=== PATIENT | female | born 1965 | race Caucasian/White ===

== ENCOUNTER 2017-09-20 13:22 | Emergency (ER) | payer MEDICAID ==
[~2017-09-20] VITALS: Ht 162.6 cm; Wt 108.9 kg
[2017-09-20 13:28] VITALS: BP 145/71
[2017-09-20] MEDS ORDERED: HYDROCODONE/APAP 5/325MG 1 EACH TABLET ONE (13:54)
[2017-09-20] MEDS ORDERED: HYDROCODONE/APAP 5/325MG 1 EACH TABLET PO ONE (14:00)
== END 2017-09-20 14:42 | disposition home or self-care (01) ==
LOC: ER 13:25
DX: S83.91XA Sprain of unspecified site of right knee, initial encounter (principal); X50.1XXA Overexertion from prolonged static or awkward postures, initial encounter; Y93.01 Activity, walking, marching and hiking; Y92.89 Other specified places as the place of occurrence of the external cause; Y99.8 Other external cause status
CPT/HCPCS: 73564; 99284; A4606; Z7610

== ENCOUNTER 2024-08-18 15:29 | Emergency (ER) | payer MEDICAID, OTHER ==
[~2024-08-18] VITALS: Ht 152.4 cm; Wt 111.1 kg
[2024-08-18 16:09] VITALS: BP 108/63; TEMP 98.6
[2024-08-18] MEDS ORDERED: OXYC-128 PO (18:25)
[2024-08-18] MEDS ORDERED: VALA10002 PO (18:25)
[2024-08-18] MEDS ORDERED: oxyCODONE/APAP (5/325 MG) 1 UDTAB TABLET ONE (18:25)
[2024-08-18] MEDS ORDERED: KETO10TA2 PO (18:26)
[2024-08-18] MEDS ORDERED: ACET-2030 PO (18:26)
[2024-08-18] MEDS: oxyCODONE/APAP (5/325 MG) 1 UDTAB TABLET PO ONE (18:34)
[2024-08-18] MEDS: VALACYCLOVIR HCL 500 MG TABLET PO ONE (18:35)
[2024-08-18 18:50] VITALS: O2SAT 98
== END 2024-08-18 18:51 | disposition home or self-care (01) ==
LOC: ER 15:41
DX: B02.9 Zoster without complications (principal)